=== PATIENT | female | born 1945 | race Caucasian/White ===

== ENCOUNTER 2024-01-07 08:41 | Emergency (ER) | payer MEDICAID ==
[~2024-01-07] VITALS: Ht 160 cm; Wt 76.6 kg
[2024-01-07 09:04] LABS: BASOPHILS 1.4 % (0-2); EOSINOPHILS 1.8 % (0-6); HEMATOCRIT 41.8 % (35.0-50.0); HEMOGLOBIN 13.9 g/dL (12.0-18.0); LYMPHOCYTES 26.5 % (24-44); MCH 28.8 (27-36); MCHC 33.2 g/dl (30-36); MCV 86.8 fl (81-99); MONOCYTES 6.2 % (0-12); NEUTROPHILS 64.1 % (39-80); PLATELET COUNT 199 K/uL (140-440); RBC 4.82 M/ul (4.3-5.7); RDW 14.4 (10.5-15.0)
[2024-01-07 09:16] LABS: ALBUMIN 3.5 g/dL (3.4-5.0); ALBUMIN/GLOBULIN RATIO 1.06 (1.1-2.4); ANION GAP 10.4 (7-21); BILIRUBIN, TOTAL 0.7 ng/dL (0.2-1.0); BUN/CREATININE RATIO 13.15 (6.0-28.6); CREATININE, SERUM 0.76 mg/dL (0.55-1.02); POTASSIUM 3.4 mmol/L (3.5-5.1); PROTEIN, TOTAL 6.8 g/dL (6.4-8.2)
[2024-01-07] MEDS ORDERED: MECLIZINE HCL 25 MG TAB PO ONE (11:30)
[2024-01-07 11:38] VITALS: BP 128/71
== END 2024-01-07 11:41 | disposition home or self-care (01) ==
LOC: ED 08:41
PROVIDERS: Emergency Medicine
DX: R42 Dizziness and giddiness (principal); Z88.5 Allergy status to narcotic agent
CPT/HCPCS: 36415; 70553; 80053; 85025; 99284-25; A9270; A9579